=== PATIENT | female | born 1935 | race Caucasian/White ===

== ENCOUNTER 2019-12-10 07:07 | Inpatient (IN) | payer MEDICARE ==
[~2019-12-10] VITALS: Ht 165.1 cm; Wt 74.5 kg
[2019-12-10] MEDS ORDERED: ONDANSETRON 2MG/ML, 2ML IVPush PRN ×2 (08:00→11:00)
[2019-12-10] MEDS: PLEASE ENTER ALLERGIES MC SCH ×2 (08:00→16:25)
[2019-12-10] MEDS ORDERED: MULT-249 PO (08:20)
[2019-12-10] MEDS ORDERED: HYDR25TA6 PO (08:20)
[2019-12-10] MEDS ORDERED: METO50TA82 PO (08:20)
[2019-12-10] MEDS ORDERED: LEVO50TA5 PO (08:20)
[2019-12-10] MEDS ORDERED: LOSA25TA25 PO (08:20)
[2019-12-10] MEDS ORDERED: AMLO-150 PO (08:20)
[2019-12-10] MEDS ORDERED: CHOL10003 PO (08:20)
[2019-12-10] MEDS ORDERED: CYCL1DRO EACHEYE (08:20)
[2019-12-10] MEDS ORDERED: APIX2.5T PO (08:20)
[2019-12-10 08:23] LABS: BASOPHILS # (AUTO) 0.02 x10^3/uL (0-0.1); BASOPHILS % (AUTO) 0 % (0-1); EOSINOPHILS # (AUTO) 0.04 x10^3/uL (0-0.4); EOSINOPHILS % (AUTO) 1 % (1-7); INTERNATIONAL NORMALIZED RATIO 0.97 (0.93-1.1); LYMPHOCYTES # (AUTO) 1.82 x10^3/uL (1-3.4); LYMPHOCYTES % (AUTO) 26 % (22-44); MD NO; MEAN CORPUSCULAR HEMOGLOBIN 29.7 pg (27.0-34.8); MEAN CORPUSCULAR HGB CONC 32.7 g/dL (32.4-35.8); MEAN PLATELET VOLUME 8.2 fL (7.4-10.4); MONOCYTES # (AUTO) 0.65 x10^3/uL (0.2-0.8); MONOCYTES % (AUTO) 9 % (2-9); NEUTROPHILS # (AUTO) 4.55 x10^3/uL (1.8-6.8); NEUTROPHILS % (AUTO) 64 % (42-75); PLATELET COUNT 230 x10^3/uL (130-400); RED BLOOD COUNT 4.13 x10^6/uL (3.82-5.3); RED CELL DISTRIBUTION WIDTH 13.5 % (9.6-15.2)
[2019-12-10 08:24] LABS: ALBUMIN 3.4 g/dL (3.4-5.0); ANION GAP 5 mmol/L (5-15); CALCIUM 9.1 mg/dL (8.5-10.1); CHLORIDE 109 mmol/L (98-107)
[2019-12-10 08:27] LABS: ALANINE AMINOTRANSFERASE 17 U/L (12-78); ALKALINE PHOSPHATASE 73 U/L (45-117); BILIRUBIN,TOTAL 0.7 mg/dL (0.2-1.0); CREATININE 1.15 mg/dL (0.55-1.02)
[2019-12-10] MEDS ORDERED: HEPARIN 1,000 UNITS/ML, 10ML ONE ×2 (09:14→10:06)
[2019-12-10] MEDS ORDERED: FENTANYL PF 100 MCG/2ML ONE (09:14)
[2019-12-10] MEDS ORDERED: ROCURONIUM 10 MG/ML,10ML ONE (09:56)
[2019-12-10] MEDS ORDERED: CEFAZOLIN 1,000 MG ONE (09:56)
[2019-12-10] MEDS ORDERED: DEXAMETHASONE 4 MG/ML, 1ML ONE (09:56)
[2019-12-10] MEDS ORDERED: SUGAMMADEX 200 MG/2 ML IVPush ONE (09:56)
[2019-12-10] MEDS ORDERED: LIDOCAINE-MPF 2% ,5ML ONE (09:56)
[2019-12-10] MEDS ORDERED: PROPOFOL 10 MG/ML, 20ML ONE (09:56)
[2019-12-10] MEDS ORDERED: ONDANSETRON 2MG/ML, 2ML ONE (09:56)
[2019-12-10] MEDS ORDERED: SUCCINYLCHOLINE 20 MG/ML, 10ML ONE (09:56)
[2019-12-10] MEDS ORDERED: PROTAMINE SULFATE 10 MG/ML, 5ML ONE ×2 (10:17→10:39)
[2019-12-10] MEDS: APIXABAN 2.5 MG TABLET PO SCH ×2 (11:00→20:21)
[2019-12-10] MEDS ORDERED: HYDROcodone/APAP 5/325 TABLET PO PRN (11:00)
[2019-12-10] MEDS ORDERED: ACETAMINOPHEN 325 MG TABLET PO PRN (11:00)
[2019-12-10] MEDS ORDERED: hydrALAzine 20 MG/ML, 1ML IVPush PRN (11:00)
[2019-12-10] MEDS ORDERED: LABETALOL 20 MG/4 ML IVPush PRN (11:00)
[2019-12-10] MEDS ORDERED: APIXABAN 5 MG TABLET ONE (11:40)
[2019-12-10 13:00] VITALS: BP 123/52
[2019-12-10] MEDS ORDERED: AMLODIPINE 5 MG TABLET PO SCH ×2 (13:10→21:00)
[2019-12-10] MEDS ORDERED: LOSARTAN 100 MG TAB PO SCH ×2 (13:48→21:00)
[2019-12-10] MEDS: METOPROLOL TARTRATE 25 MG TAB PO SCH ×2 (13:49→20:21)
[2019-12-10 19:53] VITALS: BP 118/69
[2019-12-11 00:14] VITALS: BP 117/58
[2019-12-11 05:05] LABS: ANION GAP 3 mmol/L (5-15); CALCIUM 9.1 mg/dL (8.5-10.1); CHLORIDE 107 mmol/L (98-107); CREATININE 1.13 mg/dL (0.55-1.02)
[2019-12-11 05:15] LABS: BASOPHILS # (AUTO) 0.03 x10^3/uL (0-0.1); BASOPHILS % (AUTO) 0 % (0-1); EOSINOPHILS # (AUTO) 0.04 x10^3/uL (0-0.4); EOSINOPHILS % (AUTO) 0 % (1-7); LYMPHOCYTES # (AUTO) 1.23 x10^3/uL (1-3.4); LYMPHOCYTES % (AUTO) 12 % (22-44); MD NO; MEAN CORPUSCULAR HGB CONC 33.1 g/dL (32.4-35.8); MEAN PLATELET VOLUME 8.7 fL (7.4-10.4); MONOCYTES # (AUTO) 0.66 x10^3/uL (0.2-0.8); MONOCYTES % (AUTO) 7 % (2-9); NEUTROPHILS # (AUTO) 7.99 x10^3/uL (1.8-6.8); NEUTROPHILS % (AUTO) 80 % (42-75); PLATELET COUNT 182 x10^3/uL (130-400); RED BLOOD COUNT 3.74 x10^6/uL (3.82-5.3); RED CELL DISTRIBUTION WIDTH 13.3 % (9.6-15.2)
[2019-12-11] MEDS ORDERED: LEVOTHYROXINE 50 MCG TABLET PO SCH (06:00)
[2019-12-11] MEDS ORDERED: LEVOTHYROXINE 88 MCG TABLET PO SCH ×2 (06:06→06:30)
[2019-12-11 06:31] VITALS: BP 113/65
[2019-12-11] MEDS: METOPROLOL TARTRATE 25 MG TAB PO SCH (08:11)
[2019-12-11] MEDS: APIXABAN 2.5 MG TABLET PO SCH (08:11)
[2019-12-11] MEDS ORDERED: HYDROCHLOROTHIAZIDE 25 MG TABLET PO SCH (09:00)
[2019-12-11] MEDS ORDERED: CHOLECALCIFEROL 1,000 UNIT TABLET PO SCH (09:00)
[2019-12-11 12:05] VITALS: BP 104/57
== END 2019-12-11 13:05 | disposition home or self-care (01) | DRG 267 ==
LOC: ORIP 07:07 → 5SO 13:04 → DCLOUNGE 12-11 12:53
PROVIDERS: ADMIT Internal Medicine Cardiovascular Disease; ATTEND Internal Medicine Cardiovascular Disease
PROC: B3101ZZ Fluoroscopy of Thoracic Aorta using Low Osmolar Contrast (ICD-10-PCS; 2019-12-10)
PROC: B24BZZ4 Ultrasonography of Heart with Aorta, Transesophageal (ICD-10-PCS; 2019-12-10)
PROC: 4B02XSZ Measurement of Cardiac Pacemaker, External Approach (ICD-10-PCS; 2019-12-10)
PROC: 02RF38Z Replacement of Aortic Valve with Zooplastic Tissue, Percutaneous Approach (ICD-10-PCS; principal; 2019-12-10 10:00)
DX: T82.857A Stenosis of other cardiac prosthetic devices, implants and grafts, initial encounter (principal); Z00.6 Encounter for examination for normal comparison and control in clinical research program; D68.69 Other thrombophilia; R71.0 Precipitous drop in hematocrit; I48.0 Paroxysmal atrial fibrillation; E03.9 Hypothyroidism, unspecified; E55.9 Vitamin D deficiency, unspecified; I35.2 Nonrheumatic aortic (valve) stenosis with insufficiency; Y83.8 Other surgical procedures as the cause of abnormal reaction of the patient, or of later complication, without mention of misadventure at the time of the procedure; Z95.0 Presence of cardiac pacemaker; Y92.098 Other place in other non-institutional residence as the place of occurrence of the external cause
CPT/HCPCS: 33361; 36415; 71045; 76937; 80048; 80053; 85025; 85347; 85610; 85730; 86850; 86900; 86923; 93005; 93306; 93312; 93321; 93325; 93355; 93592; 94060; 94726; 94729; C1760; C1769; C1894; G0378; J0690; J1100; J1644; J2405; J2704; J2720; J3010; J0330

== ENCOUNTER → 2020-01-14 | Outpatient (CLI) | payer MEDICARE ==
[~2020-01-14] MED LIST: AMLO-150 PO; APIX2.5T PO; CHOL10003 PO; CYCL1DRO EACHEYE; HYDR25TA6 PO; LEVO50TA5 PO; LOSA25TA25 PO; METO50TA82 PO; MULT-249 PO
== END | disposition home or self-care (01) ==
LOC: CVU 09:56
PROVIDERS: ATTEND Internal Medicine Cardiovascular Disease
DX: I51.7 Cardiomegaly (principal); I65.29 Occlusion and stenosis of unspecified carotid artery; Z95.2 Presence of prosthetic heart valve
CPT/HCPCS: 93306

== ENCOUNTER → 2020-12-08 | Outpatient (CLI) | payer MEDICARE | END | disposition home or self-care (01) | LOC: CFH 09:26 | PROVIDERS: ATTEND Internal Medicine Cardiovascular Disease | DX: Z01.810 Encounter for preprocedural cardiovascular examination (principal); I65.29 Occlusion and stenosis of unspecified carotid artery; I08.8 Other rheumatic multiple valve diseases; R06.02 Shortness of breath; Z95.2 Presence of prosthetic heart valve | CPT/HCPCS: 93306 ==